=== PATIENT | female | born 1955 | race Caucasian/White ===

== ENCOUNTER → 2019-07-14 | Outpatient (CLI) | payer BC ==
--- NOTE | 2019-07-18 14:31 | MAM ---
EXAM DESCRIPTION: 3D Screening BILATERAL : Digital Mammography. CLINICAL HISTORY: 64 years Female screening . No complaints. No personal or family history of breast cancer. Menarche age 13. Childbirth age 22. Menopause age 49. No HRT. Lifetime risk of developing breast cancer (Tyrer-Cuzick model)(%): 5.1. COMPARISON: Baseline study at this facility. No prior reports available. TECHNIQUE: Bilateral CC and MLO projection full-field images, digital tomosynthesis mammographic technique. Bilateral digital 2-D full-field MLO images. CAD available for 2-D images. FINDINGS: The breast parenchymal density pattern is: Scattered areas of fibroglandular density. No skin thickening or nipple retraction. Bilateral coarse calcifications rim calcifications and microcalcifications. Vascular calcifications. Left axillary lymph nodes. Bilateral intramammary lymph nodes. No focal, stellate mass or density, focal asymmetry , and no suspicious microcalcifications bilaterally IMPRESSION: Benign exam. BIRAD CATEGORY: 2 BENIGN FINDINGS. RECOMMENDATIONS: FOLLOW UP: Routine digital bilateral mammographic screening, one year interval from June 2019. Written communication explaining the IMPRESSION and follow-up, will be mailed to the patient and referring health care provider. According to the [employer], yearly mammograms are recommended starting at age 40 and continuing as long as a woman is in good health. Any breast change noted on a breast self-exam should be reported promptly to the patient's healthcare provider. Breast MRI is recommended for women with an approximately 20-25% or greater lifetime risk of breast cancer, including women with a strong family history of breast or ovarian cancer and women who have been treated for Hodgkin's disease. A negative mammographic report should not delay tissue diagnosis in patients with significant clinical history or physical findings. Extremely dense breast tissue limits the sensitivity of digital mammography. Electronically signed by: Eusebio Kramer MD 07/18/2019 2:30 PM CDT
== END ==
LOC: MAMMO 13:55
PROVIDERS: ATTEND Family Medicine
DX: Z12.31 Encounter for screening mammogram for malignant neoplasm of breast (principal)

== ENCOUNTER → 2019-12-08 | Outpatient (CLI) | payer MEDICARE, OTHER | LOC: GMAM 11:18 | PROVIDERS: ATTEND Family Medicine | DX: R94.6 Abnormal results of thyroid function studies (principal); I10 Essential (primary) hypertension; E11.9 Type 2 diabetes mellitus without complications ==

== ENCOUNTER → 2019-12-09 | Outpatient (CLI) | payer MEDICARE, OTHER | LOC: GMAM 13:03 | PROVIDERS: ATTEND Family Medicine | DX: R10.84 Generalized abdominal pain (principal); R94.5 Abnormal results of liver function studies; E53.8 Deficiency of other specified B group vitamins; E55.9 Vitamin D deficiency, unspecified; K21.00 Gastro-esophageal reflux disease with esophagitis, without bleeding ==

== ENCOUNTER → 2019-12-14 | Outpatient (CLI) | payer MEDICARE, OTHER ==
--- NOTE | 2019-12-14 09:13 | CT ---
EXAM DESCRIPTION: Abdoment/Pelvis w/o Contrast CLINICAL HISTORY: GENERALIZED ABDOMINAL PAIN COMPARISON: None. TECHNIQUE: Noncontrast transaxial CT images of the abdomen and pelvis are obtained. This exam was performed according to our departmental dose-optimization program, which includes automated exposure control, adjustment of the mA and/or kV according to patient size and/or use of iterative reconstruction technique . FINDINGS: Visualized lung bases show several less than 6 mm noncalcified pulmonary nodules. Given the limitations of a noncontrast exam decreased attenuation of the liver is seen. Right lobe liver measures 17.1 cm. Spleen, pancreas, and adrenal glands are unremarkable. Surgical clips from cholecystectomy are seen. Mild vascular calcifications. No nephrolithiasis. 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 No ureteral calcification or obstruction. Urinary bladder is poorly distended but unremarkable. The uterus and ovaries are unremarkable. The appendix is within normal limits. Stomach is unremarkable. No small bowel obstruction. Moderate scattered diverticuli of the colon without associated inflammatory changes or fluid collections. Large defect in the anterior abdominal wall below the umbilicus measuring at least 6.2 cm is seen with herniation of mesenteric fat and loops of small bowel into a hernia sac measuring at least 16.8 x 6.3 x 5.5 cm. No bowel obstruction. No pathologic lymphadenopathy. Osseous structures show no aggressive bony lesions. Moderate spondylitic changes of the spine are seen. IMPRESSION: Moderate ventral hernia below the umbilicus containing mesenteric fat and loops of small bowel without bowel obstruction. Colon diverticulosis without CT evidence of diverticulitis. Multiple pulmonary nodules. Most severe: 6.0 mm solid pulmonary nodule detected on incomplete chest CT. Recommend a non-contrast Chest CT at 3-6 months, then consider another non-contrast Chest CT at 18-24 months. These guidelines do not apply to immunocompromised patients and patients with cancer. Follow up in patients with significant comorbidities as clinically warranted. For lung cancer screening, adhere to Lung-RADS guidelines. Reference: Radiology. 2017; 284(1):228-43. Mild hepatomegaly with diffuse fatty infiltration of the liver is seen. Urinary bladder is poorly distended and not well evaluated. Electronically signed by: Juan Daniel Mahoney MD 12/14/2019 9:11 AM CDT
== END ==
LOC: CT 08:25
PROVIDERS: ATTEND Family Medicine
DX: K57.30 Diverticulosis of large intestine without perforation or abscess without bleeding (principal); K43.9 Ventral hernia without obstruction or gangrene; E88.89 Other specified metabolic disorders; R91.8 Other nonspecific abnormal finding of lung field; R07.89 Other chest pain

== ENCOUNTER → 2019-12-22 | Outpatient (CLI) | payer MEDICARE, OTHER ==
--- NOTE | 2019-12-23 11:15 | CT ---
EXAM DESCRIPTION: Chest w/Contrast : Computed Tomography. CLINICAL HISTORY: 64 years Female SOLITARY PULMONARY NODULE seen on CT scan of the abdomen including the lung bases. COMPARISON: Chest radiograph December 13. CT scan of the abdomen December 13. TECHNIQUE: Spiral-axial scans at 5.0 mm intervals through the lungs and thorax without IV contrast. 2.5 x 5.0 mm lung algorithm axial reconstructions. Coronal and sagittal 2.0 Mm reconstructions. No adverse reactions. Total Exam DLP: 775 mGy-cm. This exam was performed according to our departmental dose-optimization program which includes automated exposure control, adjustment of the mA and/or kV according to patient size and/or use of iterative reconstruction technique; to reduce radiation dose to as low as reasonably achievable (ALARA). Nodule measurements under 10 mm are given as mean value of 3 axes diameters. FINDINGS: Lungs and large airways: subpleural densities bilateral lower lobes but no definite nodules. 3 mm focal perfusional nodule lateral major fissure. 2 cm groundglass density anterior base left upper lobe extending from the medial subpleural region on length and axial series 4, images 59-61. Bibasilar pleural-parenchymal scarring. Pleural spaces: Scattered thickening with no calcifications or acute process. Mediastinum and [place]: Small lymph nodes but no dominant soft tissue mass. Great vessels and Heart: Minimal coronary artery calcifications. Minimal atherosclerotic calcifications of the aorta. Soft tissues of neck base, axillae, and chest wall: Unremarkable. Upper abdomen: No free fluid or free air. Normal-sized density and enhancement of the adrenal glands. Osseous structures: Diffuse thoracic spondylosis. Minimal scoliosis. Minimal shoulder clavicle and sternal arthrosis. IMPRESSION: 1. Multiple pulmonary nodules. Most severe: 20 mm left ground-glass pulmonary nodule within the upper lobe. Recommend a non-contrast Chest CT at 6 months to confirm persistence, then additional non-contrast Chest CTs every 2 years until 5 years. If nodule grows or develops solid component(s), consider resection. These guidelines do not apply to immunocompromised patients and patients with cancer. Follow up in patients with significant comorbidities as clinically warranted. For lung cancer screening, adhere to Lung-RADS guidelines. Reference: Radiology. 2017; 284(1):228-43. Electronically signed by: Eusebio Kramer MD 12/23/2019 11:14 AM CRYPTOZOOLOGIST
== END ==
LOC: CT 08:33
PROVIDERS: ATTEND Family Medicine
DX: R91.8 Other nonspecific abnormal finding of lung field (principal)